=== PATIENT | female | born 1975 | race African-American/Black ===

== ENCOUNTER 2017-02-17 11:06 | Emergency (ER) | payer OTHER ==
[~2017-02-17] VITALS: Ht 162.6 cm; Wt 150.0 kg
[~2017-02-17 11:06] MED LIST: ASPIR-LOW81 MG PO; FASTIN30 MG PO; FLEXERIL 1010 MG/TAB PO; FLEXERIL10 MG PO; GENTAMICIN OPTHA3 GM OD; IBUPROFEN400 MG PO; LORTAB 5/500 501 TAB PO; METOPROLOL25 MG PO; NAPROSYN500 MG PO; NAPROXEN EC500 MG PO; NO HOME MEDICATIONS; PHENERGAN 25 TA25 MG PO; PHENERGAN W/CO120 M1 PO; PREDNISONE10 MG PO; ZESTORETIC 12.51 TAB PO
[2017-02-17 11:07] VITALS: TEMP 98.7
[2017-02-17] MEDS ORDERED: PRINZIDE 12.5 M1 TAB PO (11:13)
[2017-02-17 13:01] VITALS: BP 167/117; PULSE 97
== END 2017-02-17 13:02 | disposition home or self-care (01) ==
LOC: COL.ER 11:06
DX: G43.909 Migraine, unspecified, not intractable, without status migrainosus (principal); I10 Essential (primary) hypertension; F17.210 Nicotine dependence, cigarettes, uncomplicated
CPT/HCPCS: J1885; J2550

== ENCOUNTER 2017-03-26 20:51 | Emergency (ER) | payer OTHER ==
[~2017-03-26] VITALS: Ht 162.6 cm; Wt 159.1 kg
[~2017-03-26 20:51] MED LIST changes: +PRINZIDE 12.5 M1 TAB PO
[2017-03-26 21:00] VITALS: TEMP 98.5
[2017-03-26 21:33] LABS: BASO # 0.1 (0.0-0.2); BASO % 0.8 % (0.0-2.0); EOS # 0.2 (0.0-0.7); EOS % 3.3 % (0-4.0); GRAN # 3.3 (1.4-6.5); GRAN % 51.4 % (42.2-75.2); HEMATOCRIT 45.3 % (37.0-47.0); HEMOGLOBIN 15.2 g/dl (12.5-16.0); LYMPH # 2.1 (1.2-3.4); LYMPH % 33.2 % (20.0-51.0); MEAN CELL VOLUME 90 fl (80.0-100.0); MEAN CORPUSCULAR HEMOGLOBIN 30 pg (27.0-31.0); MEAN CORPUSCULAR HGB CONC 34 g/dl (33.0-37.0); MEAN PLATELET VOLUME 11.3 fl (7.4-10.4); MONO # 0.7 (0.1-0.6); MONO % 11.1 % (1.7-9.3); PLATELET COUNT 269 K/mm3 (130-400); RED BLOOD COUNT 5.05 M/mm3 (4.10-5.30); REDCELL DISTRIBUTION WIDTH-CV 14.4 % (11.5-14.5)
[2017-03-26 21:44] LABS: ALBUMIN 4.3 gm/dL (3.5-5.0); BILIRUBIN,TOTAL 0.6 mg/dL (0.0-1.0); C-REACTIVE PROTEIN 1.3 mg/dL (0.0-0.9); CALCIUM 9.4 mg/dL (8.4-10.2); CREATININE, serum 0.91 mg/dL (0.52-1.25); TOTAL PROTEIN 8.1 gm/dL (6.4-8.2)
[2017-03-26 21:46] LABS: INFLUENZA A NEGATIVE; INFLUENZA B NEGATIVE
[2017-03-26] MEDS ORDERED: NORCO 325 MG-51 TAB PO (22:40)
[2017-03-26] MEDS ORDERED: PHENERGAN 25 TA25 MG PO (22:40)
[2017-03-26 23:34] VITALS: BP 103/69; PULSE 89
== END 2017-03-26 23:32 | disposition home or self-care (01) ==
LOC: COL.ER 20:51
PROVIDERS: Emergency Medicine
DX: R19.7 Diarrhea, unspecified (principal); R10.31 Right lower quadrant pain; I10 Essential (primary) hypertension; F17.210 Nicotine dependence, cigarettes, uncomplicated; Z98.890 Other specified postprocedural states
CPT/HCPCS: J1885; J2550; J3010; J7030

== ENCOUNTER 2017-03-28 08:01 | Emergency (ER) | payer OTHER ==
[~2017-03-28] VITALS: Ht 162.6 cm; Wt 143.2 kg
[~2017-03-28 08:01] MED LIST changes: +NORCO 325 MG-51 TAB PO
[2017-03-28 08:05] VITALS: TEMP 98
[2017-03-28 08:51] LABS: BASO % 0.3 % (0.0-2.0); EOS # 0.2 (0.0-0.7); EOS % 3.9 % (0-4.0); GRAN # 3.3 (1.4-6.5); HEMATOCRIT 43.8 % (37.0-47.0); HEMOGLOBIN 14.6 g/dl (12.5-16.0); LYMPH # 1.8 (1.2-3.4); MEAN CELL VOLUME 91 fl (80.0-100.0); MEAN CORPUSCULAR HEMOGLOBIN 30 pg (27.0-31.0); MEAN CORPUSCULAR HGB CONC 33 g/dl (33.0-37.0); MEAN PLATELET VOLUME 10.6 fl (7.4-10.4); MONO # 0.7 (0.1-0.6); MONO % 11.6 % (1.7-9.3); PLATELET COUNT 248 K/mm3 (130-400); RED BLOOD COUNT 4.83 M/mm3 (4.10-5.30); REDCELL DISTRIBUTION WIDTH-CV 14.4 % (11.5-14.5)
[2017-03-28 09:13] LABS: ALBUMIN 4.1 gm/dL (3.5-5.0); BILIRUBIN,TOTAL 0.6 mg/dL (0.0-1.0); C-REACTIVE PROTEIN 1.9 mg/dL (0.0-0.9); CALCIUM 9.2 mg/dL (8.4-10.2); CREATININE, serum 0.76 mg/dL (0.52-1.25); POTASSIUM 3.9 mmol/L (3.4-5.0); TOTAL PROTEIN 7.8 gm/dL (6.4-8.2)
[2017-03-28 10:15] LABS: COLLECTION METHOD CLEAN CATCH
[2017-03-28 10:40] LABS: PH 7 (5-8); URINE APPEARANCE Clear; URINE BACTERIA None Seen /hpf; URINE BILIRUBIN Negative (NEGATIVE); URINE BLOOD 2+ (NEGATIVE); URINE COLOR Yellow; URINE GLUCOSE Negative (NEGATIVE); URINE KETONE Negative (NEGATIVE); URINE LEUKOCYTE ESTERASE Negative (NEGATIVE); URINE NITRATE Negative (NEGATIVE); URINE PROTEIN(semi-quant) Negative (NEGATIVE); URINE RBC 0-2 /hpf
[2017-03-28 13:48] VITALS: BP 122/69; PULSE 80
== END 2017-03-28 13:54 | disposition home or self-care (01) ==
LOC: COL.ER 08:01
PROVIDERS: Emergency Medicine
DX: D25.9 Leiomyoma of uterus, unspecified (principal); I10 Essential (primary) hypertension
CPT/HCPCS: J1170; J1885; J2550; J7030; Q9967

== ENCOUNTER 2017-04-02 11:28 | Emergency (ER) | payer OTHER ==
[~2017-04-02] VITALS: Ht 162.6 cm; Wt 143.2 kg
[2017-04-02 11:33] VITALS: TEMP 98.3
[2017-04-02 14:09] LABS: BASO % 0.5 % (0.0-2.0); EOS # 0.1 (0.0-0.7); EOS % 1.5 % (0-4.0); GRAN # 3.2 (1.4-6.5); HEMATOCRIT 44.2 % (37.0-47.0); HEMOGLOBIN 14.8 g/dl (12.5-16.0); LYMPH # 2.4 (1.2-3.4); LYMPH % 39.2 % (20.0-51.0); MEAN CELL VOLUME 91 fl (80.0-100.0); MEAN CORPUSCULAR HEMOGLOBIN 30 pg (27.0-31.0); MEAN CORPUSCULAR HGB CONC 34 g/dl (33.0-37.0); MEAN PLATELET VOLUME 11.2 fl (7.4-10.4); MONO # 0.5 (0.1-0.6); MONO % 7.6 % (1.7-9.3); PLATELET COUNT 326 K/mm3 (130-400); RED BLOOD COUNT 4.87 M/mm3 (4.10-5.30); REDCELL DISTRIBUTION WIDTH-CV 14.2 % (11.5-14.5)
[2017-04-02 14:30] LABS: ALBUMIN 4.2 gm/dL (3.5-5.0); BILIRUBIN,TOTAL 0.6 mg/dL (0.0-1.0); C-REACTIVE PROTEIN 4.4 mg/dL (0.0-0.9); CALCIUM 9.6 mg/dL (8.4-10.2); CREATININE, serum 0.87 mg/dL (0.52-1.25); POTASSIUM 3.3 mmol/L (3.4-5.0); TOTAL PROTEIN 8.2 gm/dL (6.4-8.2)
[2017-04-02 14:55] LABS: COLLECTION METHOD CLEAN CATCH
[2017-04-02 15:03] LABS: MUCOUS Present /lpf; PH 5 (5-8); SQUAMOUS EPITHELIAL 0-2 /hpf; URINE APPEARANCE Clear; URINE BACTERIA Rare /hpf; URINE BILIRUBIN Negative (NEGATIVE); URINE BLOOD 2+ (NEGATIVE); URINE COLOR Yellow; URINE GLUCOSE Negative (NEGATIVE); URINE KETONE Negative (NEGATIVE); URINE LEUKOCYTE ESTERASE Negative (NEGATIVE); URINE NITRATE Negative (NEGATIVE); URINE PROTEIN(semi-quant) Negative (NEGATIVE); URINE RBC 0-2 /hpf; URINE UROBILINOGEN >=4.0 mg/dL (NEGATIVE)
[2017-04-02] MEDS ORDERED: MEDROL 4MG DOSPA4 MG PO (15:47)
[2017-04-02] MEDS ORDERED: NORCO 325 MG-51 TAB PO (15:47)
[2017-04-02 16:08] VITALS: BP 111/94; PULSE 99
== END 2017-04-02 16:26 | disposition home or self-care (01) ==
LOC: COL.ER 11:28
PROVIDERS: Emergency Medicine
DX: D25.9 Leiomyoma of uterus, unspecified (principal); M54.16 Radiculopathy, lumbar region; E66.9 Obesity, unspecified; F17.210 Nicotine dependence, cigarettes, uncomplicated; Z68.43 Body mass index [BMI] 50.0-59.9, adult
CPT/HCPCS: J2270; J2405; J7030; J7050; J7512; Q9967

== ENCOUNTER 2018-11-25 20:48 | Emergency (ER) | payer OTHER ==
[~2018-11-25] VITALS: Ht 162.6 cm; Wt 145.5 kg
[~2018-11-25 20:48] MED LIST changes: +MEDROL 4MG DOSPA4 MG PO; +PRINZIDE 12.5 M1 TA1 PO; -PRINZIDE 12.5 M1 TAB PO
[2018-11-25 21:02] VITALS: TEMP 97
[2018-11-25 22:07] LABS: BASO % 0.6 % (0.0-2.0); EOS # 0.2 (0.0-0.7); EOS % 2.4 % (0-4.0); GRAN # 2.7 (1.4-6.5); GRAN % 42.7 % (42.2-75.2); HEMATOCRIT 41.6 % (37.0-47.0); HEMOGLOBIN 13.6 g/dl (12.5-16.0); LYMPH # 2.7 (1.2-3.4); LYMPH % 42.5 % (20.0-51.0); MEAN CELL VOLUME 91 fl (80.0-100.0); MEAN CORPUSCULAR HEMOGLOBIN 30 pg (27.0-31.0); MEAN CORPUSCULAR HGB CONC 33 g/dl (33.0-37.0); MEAN PLATELET VOLUME 11.6 fl (7.4-10.4); MONO # 0.8 (0.1-0.6); MONO % 11.8 % (1.7-9.3); PLATELET COUNT 230 K/mm3 (130-400); RED BLOOD COUNT 4.55 M/mm3 (4.10-5.30); REDCELL DISTRIBUTION WIDTH-CV 14.9 % (11.5-14.5)
[2018-11-25 22:19] LABS: ALBUMIN 3.9 gm/dL (3.5-5.0); BILIRUBIN,TOTAL 0.5 mg/dL (0.0-1.0); CALCIUM 8.9 mg/dL (8.4-10.2); CREATININE, serum 0.69 (0.52-1.25); POTASSIUM 3.3 mmol/L (3.4-5.0); TOTAL PROTEIN 7.4 gm/dL (6.4-8.2)
[2018-11-25 22:35] LABS: COLLECTION METHOD CLEAN CATCH
[2018-11-25 22:47] LABS: MUCOUS Present /lpf; PH 6 (5-8); URINE APPEARANCE Hazy; URINE BACTERIA None Seen /hpf; URINE BILIRUBIN Negative (NEGATIVE); URINE BLOOD 2+ (NEGATIVE); URINE COLOR Red; URINE GLUCOSE Negative (NEGATIVE); URINE KETONE Negative (NEGATIVE); URINE LEUKOCYTE ESTERASE Trace (NEGATIVE); URINE NITRATE Negative (NEGATIVE); URINE PROTEIN(semi-quant) 2+ (NEGATIVE); URINE RBC >50 /hpf; URINE UROBILINOGEN Negative (NEGATIVE)
[2018-11-25] MEDS ORDERED: MACROBID 1100 MG/CAP PO (22:54)
[2018-11-25 23:20] VITALS: BP 182/109; PULSE 84
== END 2018-11-25 23:20 | disposition home or self-care (01) ==
LOC: COL.ER 20:48
PROVIDERS: Nurse Practitioner
DX: N93.9 Abnormal uterine and vaginal bleeding, unspecified (principal); I11.0 Hypertensive heart disease with heart failure; I50.9 Heart failure, unspecified; F17.210 Nicotine dependence, cigarettes, uncomplicated; Z98.51 Tubal ligation status; Z97.5 Presence of (intrauterine) contraceptive device

== ENCOUNTER 2019-01-02 05:40 | Day surgery (SDC) | payer OTHER ==
[2019-01-02] VITALS (11 sets, daily range): BP systolic 109–151; BP diastolic 62–87; PULSE 67–100; TEMP 97.5–98.1
[~2019-01-02] VITALS: Ht 160 cm; Wt 156.7 kg
[~2019-01-02 05:40] MED LIST changes: +MACROBID 1100 MG/CAP PO
--- NOTE | 2019-01-02 06:47 | NUR ---
TO RM AT [id number]-CALL LIGHT IN REACH DAUGHTER AT BEDSIDE.
--- NOTE | 2019-01-02 11:20 | NUR ---
Patient to room 222 via bed from PACU. Patient asleep, but wakes easily when name is called. When patient is awake she states that she is in "terrible pain". Dressing to lower abdomen CDI. IV to left forearm with LR infusing per orders. SCDs on. Recovery vital signs started.
[2019-01-02] MEDS ORDERED: IBU600 MG PO (20:51)
[2019-01-02] MEDS ORDERED: PERCOCET 325 MG1 TA2 PO (20:52)
[2019-01-03 00:20] VITALS: BP 114/74; PULSE 85; TEMP 98.3
[2019-01-03 04:50] VITALS: BP 119/68; PULSE 71; TEMP 98.2
[2019-01-03 07:07] LABS: BASO % 0.1 % (0.0-2.0); EOS # 0.1 (0.0-0.7); EOS % 1.1 % (0-4.0); GRAN # 5.8 (1.4-6.5); GRAN % 68.3 % (42.2-75.2); HEMOGLOBIN 11.7 g/dl (12.5-16.0); LYMPH # 1.6 (1.2-3.4); LYMPH % 19.2 % (20.0-51.0); MEAN CELL VOLUME 95 fl (80.0-100.0); MEAN CORPUSCULAR HEMOGLOBIN 31 pg (27.0-31.0); MEAN CORPUSCULAR HGB CONC 32 g/dl (33.0-37.0); MEAN PLATELET VOLUME 11.6 fl (7.4-10.4); MONO % 11.1 % (1.7-9.3); PLATELET COUNT 215 K/mm3 (130-400); RED BLOOD COUNT 3.84 M/mm3 (4.10-5.30); REDCELL DISTRIBUTION WIDTH-CV 15.3 % (11.5-14.5)
[2019-01-03 07:16] LABS: HEMATOCRIT 36.6 % (37.0-47.0)
[2019-01-03 07:54] VITALS: BP 140/98; PULSE 92; TEMP 98.2
--- NOTE | 2019-01-03 10:58 | NUR ---
Initial visit; Patient thanked Triage Registered Nurse for looking in on her and offering God's blessings.
[2019-01-03 14:04] VITALS: BP 138/88; PULSE 78; TEMP 98.1
[2019-01-03 16:36] VITALS: BP 146/80; PULSE 78; TEMP 98.1
[2019-01-03 19:00] VITALS: BP 127/75; PULSE 93; TEMP 98.5
--- NOTE | 2019-01-03 21:40 | NUR ---
2140 PERCOCET X1 PO GIVEN FOR INC PAIN. 2300 REQUEST 2ND PERCOCET AND GIVEN
[2019-01-04 02:00] VITALS: BP 117/60; PULSE 90; TEMP 98.8
[2019-01-04 07:33] VITALS: BP 132/68; PULSE 76; TEMP 98.1
--- NOTE | 2019-01-04 11:19 | NUR ---
1110 PATIENT AMBULATE TO POV ACCEMAPIED BY THIS NURSE AND DAUGHTER, DENIES NEEDS
== END 2019-01-04 11:20 | disposition home or self-care (01) ==
LOC: SDCO 05:40 → INPTSU 11:25 → OB 11:25 → INPTSU 11:47 → OB 11:47 → SDCO 01-04 11:20 → OB 01-04 11:20 → SDCO 01-16 09:00
PROVIDERS: Obstetrics & Gynecology
DX: D25.2 Subserosal leiomyoma of uterus (principal); N94.6 Dysmenorrhea, unspecified; N92.0 Excessive and frequent menstruation with regular cycle; I10 Essential (primary) hypertension; E66.01 Morbid (severe) obesity due to excess calories; K21.9 Gastro-esophageal reflux disease without esophagitis; G47.33 Obstructive sleep apnea (adult) (pediatric); F17.210 Nicotine dependence, cigarettes, uncomplicated; Z68.44 Body mass index [BMI] 60.0-69.9, adult; Z79.899 Other long term (current) drug therapy; Z82.49 Family history of ischemic heart disease and other diseases of the circulatory system
CPT/HCPCS: OP; A4314; J0690; J1650; J1885; J2270; J2405; J2704; J2710; J2765; J3010; J7120

== ENCOUNTER 2019-01-26 03:34 | Emergency (ER) | payer OTHER ==
[~2019-01-26] VITALS: Ht 162.6 cm; Wt 145.5 kg
[~2019-01-26 03:34] MED LIST changes: +IBU600 MG PO; +PERCOCET 325 MG1 TA2 PO
[2019-01-26 03:37] VITALS: TEMP 97.3
[2019-01-26 04:41] LABS: COLLECTION METHOD CLEAN CATCH
[2019-01-26 04:43] LABS: BASO % 0.5 % (0.0-2.0); EOS # 0.2 (0.0-0.7); EOS % 2.6 % (0-4.0); GRAN # 3.3 (1.4-6.5); GRAN % 50.4 % (42.2-75.2); HEMATOCRIT 38.1 % (37.0-47.0); HEMOGLOBIN 12.2 g/dl (12.5-16.0); LYMPH # 2.3 (1.2-3.4); LYMPH % 34.6 % (20.0-51.0); MEAN CELL VOLUME 92 fl (80.0-100.0); MEAN CORPUSCULAR HEMOGLOBIN 29 pg (27.0-31.0); MEAN CORPUSCULAR HGB CONC 32 g/dl (33.0-37.0); MEAN PLATELET VOLUME 11.3 fl (7.4-10.4); MONO # 0.8 (0.1-0.6); MONO % 11.6 % (1.7-9.3); PLATELET COUNT 333 K/mm3 (130-400); RED BLOOD COUNT 4.15 M/mm3 (4.10-5.30); REDCELL DISTRIBUTION WIDTH-CV 13.4 % (11.5-14.5)
[2019-01-26 04:47] LABS: HYALINE CAST >12 /lpf; MUCOUS Present /lpf; PH 5 (5-8); SQUAMOUS EPITHELIAL 0-2 /hpf; URINE APPEARANCE Cloudy; URINE BACTERIA None Seen /hpf; URINE BILIRUBIN Negative (NEGATIVE); URINE BLOOD Negative (NEGATIVE); URINE COLOR Yellow; URINE GLUCOSE Negative (NEGATIVE); URINE KETONE Negative (NEGATIVE); URINE LEUKOCYTE ESTERASE Negative (NEGATIVE); URINE NITRATE Negative (NEGATIVE); URINE PROTEIN(semi-quant) 1+ (NEGATIVE); URINE RBC 0-2 /hpf; URINE UROBILINOGEN >=4.0 mg/dL (NEGATIVE)
[2019-01-26 04:57] LABS: ALBUMIN 4.1 gm/dL (3.5-5.0); BILIRUBIN,TOTAL 0.2 mg/dL (0.0-1.0); C-REACTIVE PROTEIN 0.6 mg/dL (0.0-0.9); CALCIUM 9.3 mg/dL (8.4-10.2); CREATININE, serum 1.46 (0.52-1.25); POTASSIUM 3.8 mmol/L (3.4-5.0); TOTAL PROTEIN 7.9 gm/dL (6.4-8.2)
[2019-01-26] MEDS ORDERED: PERCOCET 325 MG1 TA2 PO (05:47)
[2019-01-26 06:00] VITALS: BP 98/44; PULSE 98
== END 2019-01-26 06:03 | disposition home or self-care (01) ==
LOC: COL.ER 03:34
PROVIDERS: Emergency Medicine
DX: R10.30 Lower abdominal pain, unspecified (principal); I10 Essential (primary) hypertension; Z90.710 Acquired absence of both cervix and uterus; Z90.721 Acquired absence of ovaries, unilateral
CPT/HCPCS: J2270; J2405; J7030; Q9967

== ENCOUNTER 2019-10-27 15:04 | Emergency (ER) | payer OTHER ==
[~2019-10-27] VITALS: Ht 162.6 cm; Wt 154.5 kg
[2019-10-27 15:10] VITALS: BP 146/96; TEMP 98.4
[2019-10-27 16:01] LABS: COLLECTION METHOD CLEAN CATCH
[2019-10-27 16:12] LABS: MUCOUS Present /lpf; PH 6 (5-8); URINE APPEARANCE Clear; URINE BACTERIA None Seen /hpf; URINE BILIRUBIN Negative (NEGATIVE); URINE BLOOD Negative (NEGATIVE); URINE COLOR Yellow; URINE GLUCOSE Negative (NEGATIVE); URINE KETONE Negative (NEGATIVE); URINE LEUKOCYTE ESTERASE Negative (NEGATIVE); URINE NITRATE Negative (NEGATIVE); URINE PROTEIN(semi-quant) Negative (NEGATIVE); URINE RBC 0-2 /hpf; URINE UROBILINOGEN Negative (NEGATIVE)
[2019-10-27] MEDS ORDERED: NORCO 325 MG-51 TAB PO (16:45)
[2019-10-27] MEDS ORDERED: FLEXERIL 1010 MG/TAB PO (16:45)
[2019-10-27] MEDS ORDERED: MEDROL 4MG DOSPA4 MG PO (16:45)
[2019-10-27 16:50] VITALS: PULSE 98
== END 2019-10-27 16:55 | disposition home or self-care (01) ==
LOC: COL.ER 15:04
PROVIDERS: Physician Assistant
DX: S39.012A Strain of muscle, fascia and tendon of lower back, initial encounter (principal); M54.41 Lumbago with sciatica, right side; I10 Essential (primary) hypertension; F17.210 Nicotine dependence, cigarettes, uncomplicated; Z90.710 Acquired absence of both cervix and uterus; Z98.51 Tubal ligation status; X58.XXXA Exposure to other specified factors, initial encounter
CPT/HCPCS: J1885

== ENCOUNTER 2019-11-16 18:02 | Emergency (ER) | payer OTHER ==
[~2019-11-16] VITALS: Ht 162.6 cm; Wt 153.6 kg
[2019-11-16 18:09] VITALS: BP 139/82; TEMP 98.8
[2019-11-16 18:30] LABS: COLLECTION METHOD CLEAN CATCH
[2019-11-16 18:43] LABS: PH 7 (5-8); URINE APPEARANCE Hazy; URINE BACTERIA None Seen /hpf; URINE BILIRUBIN Negative (NEGATIVE); URINE BLOOD Negative (NEGATIVE); URINE COLOR Yellow; URINE GLUCOSE Negative (NEGATIVE); URINE KETONE Negative (NEGATIVE); URINE LEUKOCYTE ESTERASE Negative (NEGATIVE); URINE NITRATE Negative (NEGATIVE); URINE PROTEIN(semi-quant) Negative (NEGATIVE); URINE RBC 0-2 /hpf
[2019-11-16] MEDS ORDERED: NORCO 325 MG-51 TAB PO (19:58)
[2019-11-16 20:12] VITALS: PULSE 98
== END 2019-11-16 20:05 | disposition home or self-care (01) ==
LOC: COL.ER 18:02
PROVIDERS: Emergency Medicine
DX: M54.42 Lumbago with sciatica, left side (principal); I10 Essential (primary) hypertension; E66.01 Morbid (severe) obesity due to excess calories; F17.210 Nicotine dependence, cigarettes, uncomplicated; Z90.710 Acquired absence of both cervix and uterus
CPT/HCPCS: J1885

== ENCOUNTER → 2019-12-13 | Outpatient (CLI) | payer OTHER | LOC: COL.RAD 10:30 | DX: M53.3 Sacrococcygeal disorders, not elsewhere classified (principal) | CPT/HCPCS: G0260; J3301 ==

== ENCOUNTER → 2020-02-07 | Outpatient (CLI) | payer OTHER ==
[~2020-02-07] MED LIST changes: +MAXZIDE-25MG TA1 TAB PO
[2020-02-07 13:52] VITALS: BP 131/90; PULSE 113
[2020-02-07 14:43] VITALS: BP 152/95; PULSE 92
--- NOTE | 2020-02-07 15:17 | NUR ---
pt taken to front entrance in wheelchair and assisted into pov
== END ==
LOC: COL.RAD 13:30
DX: M47.812 Spondylosis without myelopathy or radiculopathy, cervical region (principal)
CPT/HCPCS: J1100

== ENCOUNTER 2020-02-10 14:30 | Emergency (ER) | payer OTHER ==
[~2020-02-10] VITALS: Ht 162.6 cm; Wt 150.0 kg
[2020-02-10 18:00] VITALS: TEMP 97.7
[2020-02-10 18:57] LABS: BASO # 0.1 (0.0-0.2); BASO % 0.7 % (0.0-2.0); EOS # 0.1 (0.0-0.7); EOS % 1.2 % (0-4.0); GRAN # 3.3 (1.4-6.5); GRAN % 49.3 % (42.2-75.2); HEMATOCRIT 46.9 % (37.0-47.0); HEMOGLOBIN 15.4 g/dl (12.5-16.0); LYMPH # 2.6 (1.2-3.4); LYMPH % 39.3 % (20.0-51.0); MEAN CELL VOLUME 90 fl (80.0-100.0); MEAN CORPUSCULAR HEMOGLOBIN 30 pg (27.0-31.0); MEAN CORPUSCULAR HGB CONC 33 g/dl (33.0-37.0); MEAN PLATELET VOLUME 11.3 fl (7.4-10.4); MONO # 0.6 (0.1-0.6); MONO % 9.1 % (1.7-9.3); PLATELET COUNT 273 K/mm3 (130-400); RED BLOOD COUNT 5.22 M/mm3 (4.10-5.30); REDCELL DISTRIBUTION WIDTH-CV 14.7 % (11.5-14.5)
[2020-02-10 19:10] LABS: ALBUMIN 4.4 gm/dL (3.5-5.0); BILIRUBIN,TOTAL 0.8 mg/dL (0.0-1.0); C-REACTIVE PROTEIN 0.9 mg/dL (0.0-0.9); CALCIUM 9.4 mg/dL (8.4-10.2); CREATININE, serum 0.77 (0.52-1.25); POTASSIUM 3.7 mmol/L (3.4-5.0); TOTAL PROTEIN 8.2 gm/dL (6.4-8.2)
[2020-02-10 20:25] VITALS: BP 139/85; PULSE 80
== END 2020-02-10 20:32 | disposition home or self-care (01) ==
LOC: COL.ER 14:30
PROVIDERS: Nurse Practitioner
DX: R51.9 Headache, unspecified (principal); G47.33 Obstructive sleep apnea (adult) (pediatric); F17.210 Nicotine dependence, cigarettes, uncomplicated; Z99.89 Dependence on other enabling machines and devices
CPT/HCPCS: J0780; J1200; J1885; J7030

== ENCOUNTER → 2020-03-28 | Outpatient (CLI) | payer OTHER | LOC: COL.RAD 09:27 | DX: M51.16 Intervertebral disc disorders with radiculopathy, lumbar region (principal); M25.511 Pain in right shoulder ==

== ENCOUNTER → 2020-08-02 | Outpatient (CLI) | payer SELFPAY ==
[~2020-08-02] MED LIST changes: +MOBIC 7.5MG7.5 MG
== END ==
LOC: COL.RAD 13:55
DX: M25.552 Pain in left hip (principal); G89.29 Other chronic pain
CPT/HCPCS: G0260; J3301

== ENCOUNTER 2020-11-16 23:13 | Emergency (ER) | payer SELFPAY ==
[~2020-11-16] VITALS: Ht 162.6 cm; Wt 160.9 kg
[~2020-11-16 23:13] MED LIST changes: -MOBIC 7.5MG7.5 MG
[2020-11-17] MEDS ORDERED: NORCO 325 MG-51 TAB PO (00:19)
[2020-11-17 00:45] VITALS: BP 138/98; PULSE 82; TEMP 98.1
== END 2020-11-17 00:45 | disposition home or self-care (01) ==
LOC: COL.ER 23:13
DX: G89.29 Other chronic pain (principal); M54.5 Low back pain; I10 Essential (primary) hypertension; G47.33 Obstructive sleep apnea (adult) (pediatric); Z99.89 Dependence on other enabling machines and devices

== ENCOUNTER → 2021-01-02 | Outpatient (CLI) | payer SELFPAY ==
[~2021-01-02] MED LIST changes: +MOBIC 7.5MG7.5 MG
== END ==
LOC: COL.RAD 11:32
DX: M54.50 Low back pain, unspecified (principal); G89.29 Other chronic pain

== ENCOUNTER → 2021-01-22 | Outpatient (CLI) | payer SELFPAY | LOC: MHCPAIN 09:21 | DX: M47.816 Spondylosis without myelopathy or radiculopathy, lumbar region (principal); M53.3 Sacrococcygeal disorders, not elsewhere classified; M54.16 Radiculopathy, lumbar region | CPT/HCPCS: G0463 ==

== ENCOUNTER 2021-02-16 08:21 | Emergency (ER) | payer SELFPAY ==
[~2021-02-16] VITALS: Ht 160 cm; Wt 163.6 kg
[~2021-02-16 08:21] MED LIST changes: -MOBIC 7.5MG7.5 MG
[2021-02-16 08:26] VITALS: BP 135/94; PULSE 105; TEMP 98.4
[2021-02-16] MEDS ORDERED: MOBIC 7.5MG7.5 MG (08:35)
== END 2021-02-16 09:33 | disposition home or self-care (01) ==
LOC: COL.ER 08:21
DX: R51.9 Headache, unspecified (principal); F17.210 Nicotine dependence, cigarettes, uncomplicated
CPT/HCPCS: J1885; J2765

== ENCOUNTER → 2021-03-19 | Outpatient (CLI) | payer MEDICAID ==
[~2021-03-19] MED LIST changes: +MOBIC 7.5MG7.5 MG
== END ==
LOC: COL.RAD 13:05
DX: M53.3 Sacrococcygeal disorders, not elsewhere classified (principal)
CPT/HCPCS: G0260; J3301

== ENCOUNTER 2021-05-15 11:15 | Outpatient (RCR) | payer MEDICAID | END 2021-05-19 | disposition home or self-care (01) | LOC: WSPT | DX: M54.50 Low back pain, unspecified (principal); G89.29 Other chronic pain ==

== ENCOUNTER 2021-06-16 13:30 | Outpatient (RCR) | payer MEDICAID | END 2021-06-19 | disposition home or self-care (01) | LOC: WSPT | DX: M54.50 Low back pain, unspecified (principal); G89.29 Other chronic pain ==

== ENCOUNTER 2021-07-11 15:00 | Outpatient (RCR) | payer MEDICAID | END 2021-07-19 | disposition home or self-care (01) | LOC: WSPT | DX: M54.50 Low back pain, unspecified (principal); G89.29 Other chronic pain ==

== ENCOUNTER 2021-09-05 02:41 | Emergency (ER) | payer MEDICAID ==
[~2021-09-05] VITALS: Ht 160 cm; Wt 155.9 kg
[2021-09-05 02:47] VITALS: TEMP 98.1
[2021-09-05 03:13] LABS: HEMATOCRIT 43.1 % (37.0-47.0); HEMOGLOBIN 14.6 g/dl (12.5-16.0); MEAN CELL VOLUME 88 fl (80.0-100.0); MEAN CORPUSCULAR HEMOGLOBIN 30 pg (27-31); MEAN CORPUSCULAR HGB CONC 34 g/dl (33.0-37.0); MEAN PLATELET VOLUME 11.4 fl (7.4-10.4); PLATELET COUNT 310 K/mm3 (130-400); RED BLOOD COUNT 4.92 M/mm3 (4.10-5.30)
[2021-09-05 03:31] LABS: ALANINE AMINOTRANSFERASE 21 U/L (0-55); ALKALINE PHOSPHATASE 111 U/L (40-150); ANION GAP 14 mmol/L (7-16); AST,SGOT 20 U/L (5-34); BILIRUBIN,TOTAL 0.3 mg/dL (0.2-1.2); BLOOD UREA NITROGEN 10 mg/dL (7-19); CALCIUM 8.9 mg/dL (8.4-10.2); CARBON DIOXIDE 26 mmol/L (22-29); CHLORIDE 99 mmol/L (98-107); CREATININE, serum 0.69 mg/dL (0.57-1.11); GLUCOSE 112 mg/dL (70-99); SODIUM 139 mmol/L (136-145); TOTAL PROTEIN 7.6 gm/dL (6.2-8.1)
[2021-09-05 03:40] LABS: TROPONIN-I < 0.010 ng/mL (0.00-0.033)
[2021-09-05 03:42] LABS: ANISOCYTOSIS 1+; EOSINOPHIL 5 % (0-4); LYMPHOCYTE 61 % (20.0-51.0); NEUTROPHILS 31 % (42.0-75.2); PLATELET ESTIMATE NORMAL (NORMAL)
[2021-09-05 03:43] LABS: BURR CELLS 1+
[2021-09-05 07:25] VITALS: BP 120/80; PULSE 75
== END 2021-09-05 07:27 | disposition home or self-care (01) ==
LOC: COL.ER 02:41
PROVIDERS: Emergency Medicine
DX: U07.1 COVID-19 (principal); E87.6 Hypokalemia; G47.30 Sleep apnea, unspecified; R79.1 Abnormal coagulation profile; Z99.89 Dependence on other enabling machines and devices
CPT/HCPCS: J1885; Q9967

== ENCOUNTER → 2021-09-10 | Outpatient (CLI) | payer MEDICAID | LOC: COL.RAD 14:20 | DX: M54.50 Low back pain, unspecified (principal); G89.29 Other chronic pain | CPT/HCPCS: G0260; J3301 ==

== ENCOUNTER 2023-11-17 10:30 | Outpatient (RCR) | payer MEDICAID ==
[~2023-11-17 10:30] MED LIST changes: +PREDNISONE20 MG PO; +TESSALON PERLE200 MG PO; +ZITHROMAX Z PA250 MG PO
== END 2023-11-20 | disposition home or self-care (01) ==
LOC: WSC
DX: M54.42 Lumbago with sciatica, left side (principal); G89.29 Other chronic pain

== ENCOUNTER 2023-11-25 08:02 | Outpatient (RCR) | payer MEDICAID ==
[2023-12-04] MEDS ORDERED: NORCO 325 MG-51 TAB PO (01:33)
[2023-12-04] MEDS ORDERED: TOBRADEX EYE O3.5 GM OP (01:33)
== END 2023-12-20 | disposition home or self-care (01) ==
LOC: WSC
DX: M54.42 Lumbago with sciatica, left side (principal); G89.29 Other chronic pain

== ENCOUNTER 2023-12-03 23:49 | Emergency (ER) | payer MEDICAID ==
[~2023-12-03] VITALS: Ht 162.6 cm; Wt 152.7 kg
[2023-12-04] MEDS ORDERED: HYDROcodone/Acetaminophen 10-325 MG TAB PO ONE (01:30)
[2023-12-04] MEDS ORDERED: [UNRECOGNIZED DRUG - OTHER] OP SCH (01:30)
[2023-12-04] MEDS ORDERED: POLY B OP SCH (01:30)
[2023-12-04] MEDS ORDERED: DEXAMETHASONE OP SCH (01:30)
[2023-12-04] MEDS ORDERED: TOBRAMYCIN OP SCH (01:30)
[2023-12-04] MEDS ORDERED: NORCO 325 MG-51 TAB PO (01:33)
[2023-12-04] MEDS ORDERED: TOBRADEX EYE O3.5 GM OP (01:33)
[2023-12-04 01:59] VITALS: BP 148/93; PULSE 95; TEMP 97.8
== END 2023-12-04 01:59 | disposition home or self-care (01) ==
LOC: COL.ER 23:49
DX: H10.9 Unspecified conjunctivitis (principal)

== ENCOUNTER 2024-01-17 10:26 | Emergency (ER) | payer MEDICAID ==
[~2024-01-17] VITALS: Ht 160 cm; Wt 145.5 kg
[~2024-01-17 10:26] MED LIST changes: +TOBRADEX EYE O3.5 GM OP
[2024-01-17 10:47] VITALS: TEMP 97.8
[2024-01-17 13:04] LABS: BASO % 0.5 % (0.0-2.0); EOS # 0.1 K/mm3 (0.0-0.7); EOS % 1.2 % (0.0-4.0); GRAN # 2.9 K/mm3 (1.4-6.5); HEMATOCRIT 44.7 % (37.0-47.0); HEMOGLOBIN 14.9 g/dl (12.5-16.0); LYMPH # 2.4 K/mm3 (1.2-3.4); LYMPH % 40.8 % (20.0-51.0); MEAN CELL VOLUME 92 fl (80.0-100.0); MEAN CORPUSCULAR HEMOGLOBIN 31 pg (27-31); MEAN CORPUSCULAR HGB CONC 33 g/dl (33.0-37.0); MEAN PLATELET VOLUME 11.4 fl (7.4-10.4); MONO # 0.4 K/mm3 (0.1-0.6); MONO % 7.3 % (1.7-9.3); PLATELET COUNT 266 K/mm3 (130-400); RED BLOOD COUNT 4.85 M/mm3 (4.10-5.30); REDCELL DISTRIBUTION WIDTH-CV 14.6 % (11.5-14.5)
[2024-01-17] MEDS ORDERED: Ketorolac 15 MG/ML VIAL IV ONE (13:15)
[2024-01-17 13:22] LABS: ALBUMIN 3.7 g/dL (3.5-5.0); BILIRUBIN,TOTAL 0.4 mg/dL (0.2-1.2); C-REACTIVE PROTEIN 1.64 mg/dL (0.00-0.50); CALCIUM 9.5 mg/dL (8.4-10.2); CREATININE, serum 0.83 mg/dL (0.57-1.11); POTASSIUM 3.7 mEq/L (3.5-4.5); TOTAL PROTEIN 8.5 g/dl (6.2-8.1)
[2024-01-17] MEDS ORDERED: NORVASC 5MG5 MG/TAB PO (14:21)
[2024-01-17 14:30] VITALS: BP 138/91; PULSE 80
== END 2024-01-17 14:30 | disposition home or self-care (01) ==
LOC: COL.ER 10:26
PROVIDERS: Family Medicine
DX: R51.9 Headache, unspecified (principal); R20.2 Paresthesia of skin; F17.200 Nicotine dependence, unspecified, uncomplicated
CPT/HCPCS: J0780; J1885